=== PATIENT | female | born 1970 | race Two or more races ===

== ENCOUNTER 2023-01-31 10:15 | Emergency (ER) | payer MEDICAID, OTHER ==
[~2023-01-31] VITALS: Ht 160 cm; Wt 91.0 kg
[2023-01-31 10:22] VITALS: BP 150/98; PULSE 78; RESP 18; O2SAT 100
[2023-01-31] MEDS ORDERED: KETOROLAC TROMETH 60MG/2ML VIAL IM ONE (10:45)
[2023-01-31] MEDS ORDERED: TRAM50TA2 PO (11:52)
== END 2023-01-31 16:30 | disposition home or self-care (01) ==
LOC: ER 10:15 → EDBD 10:15 → ER 16:30
DX: S16.1XXA Strain of muscle, fascia and tendon at neck level, initial encounter (principal); S30.0XXA Contusion of lower back and pelvis, initial encounter; Z90.710 Acquired absence of both cervix and uterus; Z79.899 Other long term (current) drug therapy; V09.9XXA Pedestrian injured in unspecified transport accident, initial encounter; Y93.89 Activity, other specified; Y92.89 Other specified places as the place of occurrence of the external cause; Y99.8 Other external cause status
CPT/HCPCS: 72125; 72192; 73030

== ENCOUNTER 2024-08-16 05:00 | Emergency (ER) | payer OTHER ==
[~2024-08-16] VITALS: Ht 152.4 cm; Wt 77.2 kg
[~2024-08-16 05:00] MED LIST: TRAM50TA2 PO
--- NOTE | 2024-08-16 05:13 | ED.PDOC ---
History of Present Illness HPI Comments 54 y/o F, with a history of Mnire's disease, is BIBA for c/o dizziness and dull, frontal headache for 2 days, with associated constant right-ear ringing and hearing loss. Reports awaiting upcoming ENT appointment for Mnire's disease. Denies any vision or speech changes, facial droops, fever, chills, alex estion, or further associated symptoms at this time. 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 Hx Family History Family History: Reviewed,noncontributory to illness Social History Smoker: Non-Smoker Alcohol: Denies ETOH Use Drugs: Denies Drug Use Lives In: Home All Other Systems: Reviewed and Negative (as per HPI) Physical Exam General Appearance: Obese, Other (uncomfortable ) HEENT: Normal ENT Inspection, Pharynx Normal, TMs Normal Neck: Full Range of Motion, Non-Tender, Normal, Normal Inspection Respiratory: Chest Non-Tender, Lungs Clear, No Accessory Muscle Use, No Respiratory Distress, Normal Breath Sounds Cardiovascular: No Edema, No JVD, No Murmur, No Gallop, Normal Peripheral Pulses, Regular Rate/Rhythm Breast Exam: Deferred Gastrointestinal: No Organomegaly, Non Tender, No Pulsatile Mass, Normal Bowel Sounds, Soft Genitalia: Deferred Pelvic: Deferred Rectal: Deferred Extremities: No calf tenderness, Normal capillary refill, Normal inspection, Normal range of motion, Non-tender, No pedal edema Musculoskeletal : Apperance: Normal Neurologic: Alert, 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 Was a procedure done?: No Differential Dx Considerations may include: Mnire's disease, vertigo, dehydration, electrolyte imbalance among others X-Ray, Labs, Meds, VS Vital Signs Date Time Temp Pulse Resp B/P (MAP) Pulse Ox O2 Delivery O2 Flow Rate FiO2 08/16/24 05:07 97.0 80 16 168/73 (104) 100 97.0 08/16/24 05:02 88 Lab Test 08/16/24 05:19 Range/Units White Blood Count Pending Red Blood Count Pending Hemoglobin Pending Hematocrit Pending Mean Corpuscular Volume Pending Mean Corpuscular Hemoglobin Pending Mean Corpuscular Hemoglobin Concent Pending Red Cell Distribution Width Pending Platelet Count Pending Mean Platelet Volume Pending Neutrophils (%) (Auto) Pending Lymphocytes (%) (Auto) Pending Monocytes (%) (Auto) Pending Basophils (%) (Auto) Pending Neutrophils # (Auto) Pending Lymphocytes # (Auto) Pending Monocytes # (Auto) Pending Sodium Level Pending Potassium Level Pending Chloride Level Pending Carbon Dioxide Level Pending Anion Gap Pending Blood Urea Nitrogen Pending Creatinine Pending Glomerular Filtration Rate Calc Pending BUN/Creatinine Ratio Pending Serum Glucose Pending Calcium Level Pending Magnesium Level Pending Total Bilirubin Pending Aspartate Amino Transferase (AST) Pending Alanine Aminotransferase (ALT) Pending Alkaline Phosphatase Pending Troponin I High Sensitivity Pending Total Protein Pending Albumin Pending Current Medications Medications (Trade) Dose Ordered Sig/[place] Route Start Time Stop Time Status Last Admin Meclizine HCl (Antivert Tablet) 25 mg ONCE ONCE PO 08/16/24 05:15 08/16/24 05:16 DC 08/16/24 05:26 Ondansetron HCl (Zofran Po) 4 mg ONCE ONCE PO 08/16/24 05:15 08/16/24 05:16 DC 08/16/24 05:27 Diphenhydramine HCl (Benadryl Capsule) 25 mg ONCE ONCE PO 08/16/24 05:15 08/16/24 05:16 DC 08/16/24 05:26 Time of 1ST Reevaluation: 05:40 Reevaluation 1ST: Unchanged Patient Education/Counseling: Diagnosis, Treatment Family Education/Counseling: No Family Present Departure 1 Departure Time of Disposition: 05:36 Impression: Primary Impression: Vertigo Additional Impression: Meniere's disease Disposition: 01 HOME / SELF CARE / HOMELESS Condition: Stable Discharged With: Self Critical Care Note Critical Care Time?: No Stability Stability form required: No Heart Score Heart Score: Heart Score Response (Comments) Value History N/A 0 EKG N/A 0 Age N/A 0 Risk Factors N/A 0 Troponin N/A 0 Total 0 I personally scribed for KRYSTINA MARRUFO MD ([email or web address]) on 08/16/24 at 05:13. El ectronically submitted by Nils Robles ([email or web address]). KRYSTINA MARRUFO MD Aug 16, 2024 05:13
[2024-08-16] MEDS: MECLIZINE HCL 25 MG TAB PO ONE (05:26)
[2024-08-16] MEDS: diphenhdrAMINE HCL 25 MG CAP PO ONE (05:26)
[2024-08-16] MEDS: ONDANSETRON ODT 4 MG TAB PO ONE (05:27)
[2024-08-16 05:39] VITALS: PULSE 76; RESP 16; TEMP 98.2; O2SAT 96
[2024-08-16 05:40] LABS: Basophils # (auto) 0 10 ^3/uL (0-0.2); Basophils % (auto) 0.6 % (0.0-2.0); Eosinophils # (auto) 0.2 10 ^3/uL (0-0.8); Eosinophils % (auto) 1.9 % (0.0-7.0); Hematocrit 41.1 % (36.0-46.0); Hemoglobin 13.7 g/dL (12.2-16.2); Lymphocytes # (auto) 3.9 10 ^3/uL (0.4-5.4); Mean Corpuscular Hgb Conc. 33.4 g/dL (32.0-36.0); Mean Corpuscular Volume 86.8 fL (80.0-100.0); Monocytes # (auto) 0.6 10 ^3/uL (0-1.3); Neutrophils # (auto) 3.4 10 ^3/uL (1.6-8.6); Neutrophils % (auto) 42.5 % (37.0-80.0); Nucleated Red Blood Cells % 0.1 %; Platelet Count (auto) 195 10^3/uL (140-450); Red Blood Cells 4.74 10^6/uL (4.0-5.20); Red Cell Distribution Width 14.7 % (11.8-14.3); White Blood Cell 8.1 10^3/uL (4.4-10.8)
--- NOTE | 2024-08-16 05:44 | ECG ---
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
--- NOTE | 2024-08-16 05:57 | DVH ---
EXAM: CT Head Without Intravenous Contrast CLINICAL INDICATION: vertigo, headache TECHNIQUE: Axial computed tomography images of the head/brain without intravenous contrast. This CT exam was performed using one or more of the following dose reduction techniques: automated exposure control, adjustment of the mA and/or kV according to patient size, and/or use of iterative reconstru ction technique. CONTRAST: RADIATION DOSE: CTDIvol = 49.59 mGy, DLP = 795.18 mGy-cm COMPARISON: None FINDINGS: BRAIN AND EXTRA-AXIAL SPACES: No acute intracranial hemorrhage, midline shift or mass effect. If sy mptoms persist, further evaluation with MRI is recommended. No significant white matter disease. BONES/JOINTS: Unremarkable. No acute fracture. SOFT TISSUES: Unremarkable. SINUSES: Unremarkable as visualized. No acute sinusitis. MASTOID AIR CELLS: Unremarkable as visualized. No mastoid effusion. OTHER FINDINGS: . IMPRESSION: No acute intracranial hemorrhage, midline shift or mass effect. If symptoms persist, further evaluat ion with MRI is recommended.
[2024-08-16 06:00] VITALS: BP 139/80; PULSE 72; RESP 16; O2SAT 96
[2024-08-16 06:02] LABS: Alanine Aminotransferase 38 U/L (7-40); Albumin 4.5 g/dL (3.2-4.8); Anion Gap 9 (5-15); Aspartate Aminotransferase 29 U/L (13-40); BUN/Creatinine Ratio 23.9 (10.0-20.0); Blood Urea Nitrogen 16 mg/dL (9-23); Calcium 10.1 mg/dL (8.7-10.4); Carbon Dioxide 26 mmol/L (20-31); Chloride 105 mmol/L (98-107); Glucose 94 mg/dL (74-106); Magnesium 1.9 mg/dL (1.6-2.6); Sodium 140 mmol/L (136-145); Total Protein 7.6 g/dL (5.7-8.2)
[2024-08-16 06:03] LABS: Alkaline Phosphatase 136 U/L (46-116); Bilirubin, Total 0.5 mg/dL (0.2-1.0); Potassium 3.5 mmol/L (3.5-5.1)
[2024-08-16] MEDS ORDERED: MECL1TAB42 PO (07:19)
[2024-08-16] MEDS ORDERED: ZOFR4T PO (07:19)
[2024-08-16] MEDS ORDERED: ALPR0.25 PO (07:19)
== END 2024-08-16 07:41 | disposition home or self-care (01) ==
LOC: EDUNIT# 05:00 → EDBD 05:00 → ER 05:00
DX: H81.01 Meniere's disease, right ear (principal); Z90.710 Acquired absence of both cervix and uterus; Z79.899 Other long term (current) drug therapy
CPT/HCPCS: 36415; 70450; 80053; 83735; 84484; 85025; 93005; 99284; J8597; Q0162